=== PATIENT | male | born 1975 ===

== ENCOUNTER 2018-12-09 11:21 | Emergency (ER) | payer OTHER ==
--- NOTE | 2018-12-09 13:13 | ED PDOC ---
HPI: Back Time Seen by Provider: 12/09/18 12:28 Chief Complaint (Nursing): Back Pain Chief Complaint (Provider): back pain and left breast mass History Per: Patient History/Exam Limitations: no limitations Additional Complaint(s): 43 y/o M with hx of chronic low back pain presents with recurrent back pain x 1 day. Pt states that he began having lower back pain yesterday evening that is worse with bending forward and radiates to the back of both legs, rated 8/10 on pain scale. States that he could not sleep last night due to the pain as he could not find a comfortable position. He last took Motrin at 9am. He has had this pain in the past and was given Tylenol which he changed to Motrin as he felt it was stronger. He was also sent to physical therapy, which helped, about one year ago. Denies numbness or tingling in lower extremities, fevers, chills, night sweats. He further states that he noticed a left breast mass about 1 month ago that is tender. Denies family hx of breast Cancer, drainage, skin changes. F uther denies HTN, HL, DM. Past Medical History Vital Signs: Last Vital Signs Temp 97.8 F 12/09/18 11:31 Pulse 82 12/09/18 11:31 Resp 18 12/09/18 11:31 BP 153/74 H 12/09/18 11:31 Pulse Ox 97 12/09/18 11:31 - Allergies Allergies/Adverse Reactions: Allergies Allergy/AdvReac Type Severity Reaction Status Date / Time No Known Allergies Allergy Verified 12/09/18 11:46 Physical Exam - Reviewed Nursing Documentation Reviewed: Yes Vital Signs Reviewed: Yes - Physical Exam Appears: Positive for: Uncomfortable Skin: Positive for: Normal Color Cardiovascular/Chest: Positive for: Other (mobile approximately 6cm mass noted below Left nipple, tender to palpation, no erythema/edema/skin changes. ) Pulses-Dorsalis Pedis (L): 1+ Pulses-Dorsalis Pedis (R): 1+ Back: Positive for: Normal Inspection, Vertebral Tenderness (on lumbar spine), Decreased ROM (with back flexion, normal ROM with flexion/extension at hip and knee. ) Neurologic/Psych: Positive for: Alert, Oriented. Negative for: Motor/Sensory Deficits (sensation to light touch equal in B/L lower extremities. ) - ECG O2 Sat by Pulse Oximetry: 97 Medical Decision Making Medical Decision Making: Left breast U/S Flexeril 10mg PO x 1 Tylenol 650mg PO x 1 Re-evaluation Disposition - Disposition Forms: [facility] [employer] ([place])
[2018-12-09 15:53] VITALS: BP 142/74; PULSE 79; RESP 16; TEMP 98.1; O2SAT 99
== END 2018-12-09 15:52 | disposition home or self-care (01) ==
LOC: H.ER 11:21
DX: M54.9 Dorsalgia, unspecified (principal); N63.20 Unspecified lump in the left breast, unspecified quadrant; G89.29 Other chronic pain